=== PATIENT | female | born 1985 | race Hispanic/Latino ===

== ENCOUNTER 2017-09-01 21:48 | Emergency (ER) | payer MEDICAID ==
[2017-09-01] MEDS ORDERED: LIDOCAINE HCL-MPF 1% 2ML VIAL ONE (22:34)
[2017-09-01] MEDS ORDERED: CEFTRIAXONE SODIUM 1 GM ONE (22:34)
== END 2017-09-01 23:11 | disposition home or self-care (01) ==
LOC: EDH 21:48
DX: S50.862A Insect bite (nonvenomous) of left forearm, initial encounter (principal); L03.114 Cellulitis of left upper limb; Z72.0 Tobacco use; Z98.890 Other specified postprocedural states; W57.XXXA Bitten or stung by nonvenomous insect and other nonvenomous arthropods, initial encounter; Y93.89 Activity, other specified; Y92.89 Other specified places as the place of occurrence of the external cause; Y99.8 Other external cause status
CPT/HCPCS: 96372; 99283; J0696; J3490

== ENCOUNTER 2017-10-15 13:59 | Emergency (ER) | payer MEDICAID, OTHER ==
[2017-10-15 15:31] LABS: BASOPHILS % (AUTO) 0.4 % (0.0-5.0); EOSINOPHILS % (AUTO) 0.3 % (0.0-8.0); HEMATOCRIT 39.4 % (36-48); LYMPHOCYTES % (AUTO) 16.1 % (21.0-51.0); MEAN CORPUSCULAR HEMOGLOBIN 28.9 pg (27.0-33.0); MEAN CORPUSCULAR HGB CONC 33.8 g/dL (32.0-36.0); MEAN CORPUSCULAR VOLUME 85.5 fL (79-99); MONOCYTES % (AUTO) 6.9 % (3.0-13.0); NEUTROPHILS % (AUTO) 76.3 % (40.0-77.0); PLATELET COUNT (AUTO) 474 K/uL (130-400); RED BLOOD CELL COUNT(AUTO) 4.61 MIL/uL (4.00-5.50); RED CELL DISTRIBUTION WIDTH 15.8 % (11.0-15.5); WHITE BLOOD COUNT (AUTO) 12.8 K/uL (4.8-10.8)
[2017-10-15 15:49] LABS: CREATININE 0.8 mg/dL (0.5-1.5); POTASSIUM 3.6 mmol/L (3.5-5.1)
[2017-10-15 16:15] LABS: ALBUMIN 3.9 g/dL (3.5-5.0); BILIRUBIN,TOTAL 0.4 mg/dL (0.2-1.0); TOTAL PROTEIN, SERUM 7.9 g/dL (6.0-8.3)
[2017-10-15 16:49] LABS: APPEARANCE,URINE Cloudy (CLEAR); BILIRUBIN,URINE Negative (NEGATIVE); COLOR,URINE Yellow (YELLOW); GLUCOSE, URINE (UA) Negative (NEGATIVE); KETONES,URINE Trace mg/dL (NEGATIVE); LEUKOCYTE ESTERASE ,URINE Negative (NEGATIVE); NITRATE,URINE Negative (NEGATIVE); OCCULT BLOOD,URINE Large (NEGATIVE); PH,URINE 7.5 (5.0-8.0); PROTEIN,URINE Trace (NEGATIVE)
[2017-10-15 17:13] LABS: SQUAMOUS EPITHELIAL CELL,UR 50-100 /LPF (0-2)
[2017-10-15 17:14] LABS: AMORPHOUS SEDIMENT,UR Many /LPF (None Seen); BACTERIA,URINE Few /HPF (None Seen); MUCUS,URINE Many LPF (None Seen); RBC,URINE None Seen /HPF (0-1)
== END 2017-10-15 17:00 | disposition home or self-care (01) ==
LOC: EDH 13:59
DX: O20.0 Threatened abortion (principal); Z98.890 Other specified postprocedural states; Z3A.01 Less than 8 weeks gestation of pregnancy
CPT/HCPCS: 36415; 76817; 80053; 81001; 84702; 85025; 86900; 86901

== ENCOUNTER 2017-10-19 18:13 | Emergency (ER) | payer MEDICAID, OTHER ==
[2017-10-19] MEDS ORDERED: MORPHINE SULFATE 4 MG/1ML SYG ONE ×2 (18:47→19:15)
[2017-10-19 18:54] LABS: BASOPHILS % (AUTO) 0.2 % (0.0-5.0); HEMATOCRIT 40.6 % (36-48); LYMPHOCYTES % (AUTO) 7.2 % (21.0-51.0); MEAN CORPUSCULAR HEMOGLOBIN 27.8 pg (27.0-33.0); MEAN CORPUSCULAR HGB CONC 32.8 g/dL (32.0-36.0); MEAN CORPUSCULAR VOLUME 84.8 fL (79-99); MONOCYTES % (AUTO) 5.5 % (3.0-13.0); NEUTROPHILS % (AUTO) 87.1 % (40.0-77.0); PLATELET COUNT (AUTO) 506 K/uL (130-400); RED BLOOD CELL COUNT(AUTO) 4.79 MIL/uL (4.00-5.50); RED CELL DISTRIBUTION WIDTH 15.6 % (11.0-15.5); WHITE BLOOD COUNT (AUTO) 18.5 K/uL (4.8-10.8)
[2017-10-19] MEDS ORDERED: ONDANSETRON ODT 4 MG TAB ONE (19:09)
[2017-10-19 20:58] LABS: HEMATOCRIT 37.2 % (36-48)
[2017-10-19] MEDS ORDERED: HYDROCODONE/ACETAMINOPHEN 10/325 MG TAB ONE (21:09)
== END 2017-10-19 22:02 | disposition home or self-care (01) ==
LOC: EDH 18:13
DX: O20.0 Threatened abortion (principal); Z3A.01 Less than 8 weeks gestation of pregnancy; Z98.890 Other specified postprocedural states
CPT/HCPCS: 36415; 76801; 84702; 85014; 85018; 85025; 86900; 86901; 96374 ×2; 99285; J2270 ×2

== ENCOUNTER 2017-10-21 09:25 | Emergency (ER) | payer MEDICAID, OTHER ==
[2017-10-21] MEDS ORDERED: ONDANSETRON HCL MDV 20ML 2 MG/ML VIAL ONE (10:11)
[2017-10-21] MEDS ORDERED: SODIUM CHLORIDE 0.9% 1000ML 1,000 ML IV ONE (10:11)
[2017-10-21 10:24] LABS: BASOPHILS % (AUTO) 0.1 % (0.0-5.0); EOSINOPHILS % (AUTO) 0.1 % (0.0-8.0); HEMATOCRIT 35.6 % (36-48); LYMPHOCYTES % (AUTO) 8.3 % (21.0-51.0); MEAN CORPUSCULAR HEMOGLOBIN 29.4 pg (27.0-33.0); MEAN CORPUSCULAR HGB CONC 34.6 g/dL (32.0-36.0); MEAN CORPUSCULAR VOLUME 84.9 fL (79-99); MONOCYTES % (AUTO) 5.2 % (3.0-13.0); NEUTROPHILS % (AUTO) 86.3 % (40.0-77.0); PLATELET COUNT (AUTO) 419 K/uL (130-400); RED BLOOD CELL COUNT(AUTO) 4.19 MIL/uL (4.00-5.50); RED CELL DISTRIBUTION WIDTH 15.6 % (11.0-15.5); WHITE BLOOD COUNT (AUTO) 14.8 K/uL (4.8-10.8)
[2017-10-21] MEDS ORDERED: DICYCLOMINE HCL 10 MG/ML 2ML AMP IM ONE (10:30)
[2017-10-21 10:35] LABS: CREATININE 0.8 mg/dL (0.5-1.5); POTASSIUM 3.2 mmol/L (3.5-5.1)
[2017-10-21] MEDS ORDERED: ONDANSETRON HCL MDV 20ML 2 MG/ML VIAL IVP ONE (11:53)
[2017-10-21 12:13] LABS: APPEARANCE,URINE Turbid (CLEAR); BILIRUBIN,URINE Negative (NEGATIVE); COLOR,URINE Yellow (YELLOW); GLUCOSE, URINE (UA) Negative (NEGATIVE); KETONES,URINE >=160 mg/dL (NEGATIVE); LEUKOCYTE ESTERASE ,URINE Trace (NEGATIVE); NITRATE,URINE Negative (NEGATIVE); OCCULT BLOOD,URINE Large (NEGATIVE); PROTEIN,URINE Trace (NEGATIVE)
[2017-10-21 12:27] LABS: AMORPHOUS SEDIMENT,UR Moderate /LPF (None Seen); BACTERIA,URINE Few /HPF (None Seen); MUCUS,URINE Moderate LPF (None Seen); RBC,URINE 0-1 /HPF (0-1); SQUAMOUS EPITHELIAL CELL,UR Few /HPF (0-2); WBC,URINE 0-1 /HPF (0-1)
== END 2017-10-21 13:13 | disposition home or self-care (01) ==
LOC: EDH 09:25
DX: O20.0 Threatened abortion (principal); Z3A.01 Less than 8 weeks gestation of pregnancy
CPT/HCPCS: 36415; 76801; 80048; 81001; 82150; 83690; 84702; 85025; 96361; 96372; 96374; 96375; 99285; J0500; J7030

== ENCOUNTER 2018-08-23 17:28 | Emergency (ER) | payer MEDICAID, OTHER ==
[2018-08-23 18:12] LABS: APPEARANCE,URINE SL CLOUDY (CLEAR); BILIRUBIN,URINE NEGATIVE (NEGATIVE); COLOR,URINE YELLOW (YELLOW); GLUCOSE, URINE (UA) NEGATIVE (NEGATIVE); KETONES,URINE 15 mg/dL (NEGATIVE); LEUKOCYTE ESTERASE ,URINE NEGATIVE (NEGATIVE); NITRATE,URINE NEGATIVE (NEGATIVE); OCCULT BLOOD,URINE NEGATIVE (NEGATIVE); PROTEIN,URINE NEGATIVE (NEGATIVE); UROBILINOGEN,URINE 0.2 mg/dL (0.2-1.0)
[2018-08-23 18:22] LABS: HCG,QUAL RESULT NEGATIVE (NEGATIVE)
[2018-08-23 18:44] LABS: BACTERIA,URINE Rare /HPF (None Seen); RBC,URINE 0-1 /HPF (0-1); SQUAMOUS EPITHELIAL CELL,UR Moderate /HPF (0-2); WBC,URINE 0-1 /HPF (0-1)
[2018-08-23 18:47] LABS: MUCUS,URINE Moderate LPF (None Seen)
[2018-08-23 19:41] LABS: BASOPHILS % (AUTO) 0.6 % (0.0-5.0); EOSINOPHILS % (AUTO) 0.3 % (0.0-8.0); HEMATOCRIT 39.2 % (36-48); MEAN CORPUSCULAR HEMOGLOBIN 29.8 pg (27.0-33.0); MEAN CORPUSCULAR HGB CONC 32.9 g/dL (32.0-36.0); MEAN CORPUSCULAR VOLUME 90.7 fL (79-99); MONOCYTES % (AUTO) 8.7 % (3.0-13.0); NEUTROPHILS % (AUTO) 62.4 % (40.0-77.0); NUCLEATED RED BLOOD CELLS 0.1 % (0.0-0.19); PLATELET COUNT (AUTO) 378 K/uL (130-400); RED BLOOD CELL COUNT(AUTO) 4.33 MIL/uL (4.00-5.50); WHITE BLOOD COUNT (AUTO) 9.6 K/uL (4.8-10.8)
[2018-08-23 20:09] LABS: CREATININE 0.7 mg/dL (0.5-1.5); POTASSIUM 3.3 mmol/L (3.5-5.1)
== END 2018-08-23 20:42 | disposition home or self-care (01) ==
LOC: EDH 17:28
DX: N88.8 Other specified noninflammatory disorders of cervix uteri (principal); R35.0 Frequency of micturition
CPT/HCPCS: 36415; 76830; 80048; 81001; 81025; 85025; 87486; 87797

== ENCOUNTER 2019-02-07 21:59 | Emergency (ER) | payer OTHER ==
[2019-02-07] MEDS ORDERED: SODIUM CHLORIDE 0.9% 1000ML 1,000 ML IV ONE (22:26)
[2019-02-07] MEDS ORDERED: ONDANSETRON HCL 4 MG/2 ML VIAL ONE (22:26)
== END 2019-02-07 23:00 | disposition home or self-care (01) ==
LOC: EDH 21:59
DX: K52.9 Noninfective gastroenteritis and colitis, unspecified (principal)
CPT/HCPCS: 96374; 99284; J2405; J7030

== ENCOUNTER 2020-03-18 21:43 | Emergency (ER) | payer OTHER ==
[2020-03-18] MEDS ORDERED: SODIUM CHLORIDE 0.9% 1000ML 1,000 ML IV ONE (21:44)
[2020-03-18] MEDS ORDERED: ONDANSETRON HCL 4 MG/2 ML VIAL ONE (22:10)
[2020-03-18 22:16] LABS: BASOPHILS % (AUTO) 0.1 % (0.0-5.0); HEMATOCRIT 40.9 % (36-48); LYMPHOCYTES % (AUTO) 5.5 % (21.0-51.0); MEAN CORPUSCULAR HEMOGLOBIN 27.5 pg (27.0-33.0); MEAN CORPUSCULAR HGB CONC 32.5 g/dL (32.0-36.0); MEAN CORPUSCULAR VOLUME 84.5 fL (79-99); MONOCYTES % (AUTO) 6.2 % (3.0-13.0); NEUTROPHILS % (AUTO) 87.8 % (40.0-77.0); PLATELET COUNT (AUTO) 481 K/uL (130-400); RED BLOOD CELL COUNT(AUTO) 4.84 MIL/uL (4.00-5.50); RED CELL DISTRIBUTION WIDTH 15.2 % (11.0-15.5); WHITE BLOOD COUNT (AUTO) 16.8 K/uL (4.8-10.8)
[2020-03-18 22:26] LABS: APPEARANCE,URINE Clear (CLEAR); BILIRUBIN,URINE Negative (NEGATIVE); COLOR,URINE Dark Yellow (YELLOW); GLUCOSE, URINE (UA) TRACE mg/dL (NEGATIVE); KETONES,URINE >=160 mg/dL (NEGATIVE); LEUKOCYTE ESTERASE ,URINE Negative (NEGATIVE); NITRATE,URINE Negative (NEGATIVE); OCCULT BLOOD,URINE Negative (NEGATIVE); PROTEIN,URINE 300 mg/dL (NEGATIVE)
[2020-03-18 22:28] LABS: CREATININE 0.8 mg/dL (0.5-1.5); POTASSIUM 3.4 mmol/L (3.5-5.1)
[2020-03-18 22:29] LABS: HCG,QUAL RESULT POSITIVE (NEGATIVE)
[2020-03-18 22:32] LABS: ALBUMIN 4.6 g/dL (3.5-5.0); BILIRUBIN,TOTAL 0.5 mg/dL (0.2-1.0); TOTAL PROTEIN, SERUM 8.7 g/dL (6.0-8.3)
[2020-03-18 22:34] LABS: AMPHET/METH SCREEN,URINE NEGATIVE (NEGATIVE); BACTERIA,URINE None Seen /HPF (None Seen); BARBITURATE SCREEN, URINE NEGATIVE (NEGATIVE); BENZODIAZEPINES SCREEN,URINE NEGATIVE (NEGATIVE); CANNABINOID SCREEN,URINE POSITIVE (NEGATIVE); COCAINE SCREEN,URINE NEGATIVE (NEGATIVE); OPIATE SCREEN,URINE NEGATIVE (NEGATIVE); PHENCYCLIDINE SCREEN,URINE NEGATIVE (NEGATIVE); RBC,URINE 0-1 /HPF (0-1); SQUAMOUS EPITHELIAL CELL,UR Few /HPF (0-2); WBC,URINE None Seen /HPF (0-1)
== END 2020-03-19 00:35 | disposition home or self-care (01) ==
LOC: EDH 21:43
DX: K52.9 Noninfective gastroenteritis and colitis, unspecified (principal)
CPT/HCPCS: 36415; 80053; 80305; 81001; 81025; 83690; 84702; 85025; 96361; 96374; 96375; 99284; J2405; J7030

== ENCOUNTER 2025-06-27 22:01 | Emergency (ER) | payer MEDICAID ==
[~2025-06-27] VITALS: Ht 144.8 cm; Wt 64.9 kg
[~2025-06-27 22:01] MED LIST: AMOX1TAB16 PO
--- NOTE | 2025-06-28 00:37 | HMCIMG ---
EXAM: CR Left Humerus, 2 views. CLINICAL HISTORY: Pain. COMPARISON: None provided. FINDINGS: No acute fracture or aggressive appearing osseous lesion. Unremarkable joint spaces. The soft tissues are unremarkable. IMPRESSION: No acute bony abnormality is evident. /[place]
--- NOTE | 2025-06-28 00:39 | HMCIMG ---
EXAM: CR Chest and Left Ribs, 6 Views. CLINICAL HISTORY: Pain. COMPARISON: None provided. FINDINGS: The lungs show no infiltrates or other acute findings. No pleural effusion or pneumothorax. The cardiomediastinal silhouette is within normal limits. No acute osseous abnormality. No acute rib fracture is evident on radiographic evaluation. IMPRESSION: No acute rib fracture is evident on radiographic evaluation. If the clinical concern persists, recommend a noncontrast CT scan of the chest for an optimal evaluation. No acute cardiopulmonary pathology is evident. /[place]
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
[2025-06-28 01:13] VITALS: BP 148/71; PULSE 68; RESP 18; TEMP 98.2; O2SAT 98
== END 2025-06-28 01:13 | disposition home or self-care (01) ==
LOC: EDH 22:01
DX: S29.011A Strain of muscle and tendon of front wall of thorax, initial encounter (principal); S53.402A Unspecified sprain of left elbow, initial encounter; W18.39XA Other fall on same level, initial encounter; Y93.89 Activity, other specified; Y92.89 Other specified places as the place of occurrence of the external cause; Y99.8 Other external cause status
CPT/HCPCS: 71101; 73060; 81025; 99284

== ENCOUNTER 2025-07-25 18:42 | Emergency (ER) | payer OTHER, MEDICAID ==
[~2025-07-25] VITALS: Ht 144.8 cm; Wt 65.8 kg
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
[2025-07-25 18:56] VITALS: BP 138/94; PULSE 66; RESP 16; TEMP 98.2; O2SAT 100
[2025-07-25] MEDS ORDERED: IBUP-2077 PO (20:11)
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
== END 2025-07-25 20:28 | disposition home or self-care (01) ==
LOC: EDH 18:42
DX: S20.212A Contusion of left front wall of thorax, initial encounter (principal); S60.222A Contusion of left hand, initial encounter; Z87.42 Personal history of other diseases of the female genital tract; V89.2XXA Person injured in unspecified motor-vehicle accident, traffic, initial encounter; Y93.I9 Activity, other involving external motion; Y92.488 Other paved roadways as the place of occurrence of the external cause; Y99.8 Other external cause status
CPT/HCPCS: 71101; 73130; 99284